=== PATIENT | male | born 1940 | race Caucasian/White ===

== ENCOUNTER 2018-10-22 09:08 | Inpatient (IN) ==
--- NOTE | 2018-10-22 09:31 | Diag Imaging Result Doc PS360 ---
CT HEAD W/O CONTRAST - 10/22/2018 INDICATION: stroke COMPARISON: None FINDINGS: There is mild to moderate periventricular white matter chronic microvascular disease. There are also some old periventricular lacunar is bilaterally. No intracranial mass or hemorrhage. The skull is intact. The sinuses, mastoids, and middle ears are clear. IMPRESSION: Chronic appearing changes. No acute process. This exam was performed using automated exposure control, adjustment of mA or kV according to patient size, and/or use of iterative reconstruction technique Electronically signed by Joshua Turner 10/22/2018 9:29 AM
--- NOTE | 2018-10-22 09:41 | EKG Report ---
Test Performed on : 10/22/2018 09:19:41 AM Test Reason : Stroke like symptoms Blood Pressure : / mmHG Vent. Rate : 063 BPM Atrial Rate : 063 BPM P-R Int : 148 ms QRS Dur : 092 ms QT Int : 378 ms P-R-T Axes : 074 052 055 degrees QTc Int : 386 ms Normal sinus rhythm. with sinus arrhythmia. Normal ECG No previous ECGs available Unconfirmed Result
--- NOTE | 2018-10-22 09:44 | PROVIDER DOCUMENTATION ---
HPI-Neurological Disorder - General Chief Complaint: Stroke-Like Symptoms Stated Complaint: weakness Time Seen by Provider: 10/22/18 09:26 Allergies/Adverse Reactions: Patient Allergies Allergy/AdvReac Type Severity Reaction Status Date / Time No Known Allergies Allergy Verified 10/22/18 09:32 - History of Present Illness-Neuro Nature of Presenting Problem: reports that he felt right sided weakness this morning around 2am but it continues. he reports that while he stood up started ambulating, but fell over and denies any symptoms of dizziness, lightheadedness or any symptoms. he reports no sustained injury and did not have LOC. at bedside he says his speech might be slurred and right side still weakness. no history of CVA, TIA. but has history of HLD, smoking still smokes 1ppd. history of colon cancer with colectomy and has the colostomy bag. Review of Systems - Adult - REVIEW OF SYSTEMS - ADULT Constitutional: reports: no symptoms reported Eyes: reports: no symptoms reported Ears, Nose, Mouth & Throat: reports: no symptoms reported Cardiovascular: reports: no symptoms reported Respiratory: reports: no symptoms reported Gastrointestinal: reports: no symptoms reported Genitourinary: reports: no symptoms reported Musculoskeletal: reports: no symptoms reported Integumentary: reports: no symptoms reported Neurological: reports: no symptoms reported Psychiatric: reports: no symptoms reported Endocrine: reports: no symptoms reported Hematologic/Lymphatic: reports: no symptoms reported Allergic/Immunologic: reports: no symptoms reported All Other Systems: Reviewed and Negative Past History - Adult - PAST MEDICAL HISTORY-ADULT Review of Records: reports: Old Records Reviewed, Nursing Assessment Review, Medications Reviewed, Social history reviewed & non-contributory. Major Childhood Illnesses: reports: denies history Cardiovascular: reports: denies history Respiratory: reports: denies history Gastrointestinal: reports: denies history Obstetrical/Gynecological: reports: denies history Genitourinary: reports: denies history Musculoskeletal: reports: denies history Neurological: reports: denies history Endocrine/Immune: reports: denies history Other Conditions: reports: denies history - IMMUNIZATION STATUS Childhood Immunizations: See Nurse Assessment Flu Vaccine: See Nurse Assessment - FAMILY HISTORY Family History: reviewed, not pertinent - SOCIAL HISTORY Smoking: greater than 1 pack/day Substance Use: none/never Alcohol Use Frequency: never Living Situation: alone Physical Exam- Neurological - Physical Exam-Neuro Initial Vital Signs Reviewed: Yes General Appearance: appears well, alert, no apparent distress Eye Exam: bilateral eye: normal inspection, PERRL, EOMI HENMT: normocephalic/atraumatic, moist mucous membranes, normal ENT inspection, TMs normal Head Injury: no evidence of injury, active bleeding Neck: non-tender, full range of motion Respiratory: chest non-tender, lungs clear, normal breath sounds Cardiovascular: normal peripheral pulses, regular rate, rhythm Abdominal Exam: normal bowel sounds, non tender Lymphatic: no adenopathy Peripheral Pulses: radial (R): 2+, radial (L): 2+ Extremity: normal range of motion, non-tender, other (weak gait slow walking) profile grinder Exam: normal hearing, normal speech, PERRL Coordination/Gait: normal finger to nose, negative Romberg's sign Motor/Sensory: no motor deficit, no sensory deficit, no pronator drift, negative Babinski's sign Neurologic: profile grinder II-XII nml as tested, grossly normal Integumentary: normal color, normal turgor, warm/dry Psych/Mental Status: normal mood/affect, normal thought content, normal thought process, oriented x 3 - Glascow Coma Scale Best Eye Response: (4) open spontaneously Best Verbal Response: (5) oriented Best Motor Response: (6) obeys commands Progress - PLAN OF CARE/RESULTS Progress/Plan/Lab Results: Vital Signs - 8 hr 10/22/18 09:22 10/22/18 09:28 10/22/18 10:00 Pulse Rate 70 67 95 H Respiratory Rate 16 16 19 Blood Pressure 99/65 99/65 O2 Sat by Pulse Oximetry 100 100 98 Laboratory Results - last 24 hr 10/22/18 10/22/18 10/22/18 09:26 09:26 09:26 WBC 8.23 RBC 4.48 L Hgb 13.7 L Hct 42.5 MCV 94.9 MCH 30.6 MCHC 32.2 L RDW Std Deviation 13.0 Plt Count 215 MPV 9.8 Immature Gran % (Auto) 0.5 Neut % (Auto) 64.6 Lymph % (Auto) 20.2 L [place] % (Auto) 8.1 Eos % (Auto) 5.7 Baso % (Auto) 0.9 H Immature Gran # (Auto) 0.04 Neut # (Auto) 5.32 Lymph # (Auto) 1.66 [place] # (Auto) 0.67 H Eos # (Auto) 0.47 Baso # (Auto) 0.07 PT 13.3 INR 0.94 PTT (Actin FS) 32.4 Sodium 141 Potassium 5.5 H Chloride 107 Carbon Dioxide 23 L Anion Gap 11 BUN 41 H Creatinine 2.4 H Estimated GFR/1.73 m2 26 BUN/Creatinine Ratio 17 Glucose 107 H Calculated Osmolality 292 Calcium 8.9 Total Bilirubin 0.22 AST 20 ALT 15 Alkaline Phosphatase 58 Troponin T Total Protein 6.2 L Albumin 4.3 Globulin 1.9 Albumin/Globulin Ratio 2.3 10/22/18 09:26 WBC RBC Hgb Hct MCV MCH MCHC RDW Std Deviation Plt Count MPV Immature Gran % (Auto) Neut % (Auto) Lymph % (Auto) [place] % (Auto) Eos % (Auto) Baso % (Auto) Immature Gran # (Auto) Neut # (Auto) Lymph # (Auto) [place] # (Auto) Eos # (Auto) Baso # (Auto) PT INR PTT (Actin FS) Sodium Potassium Chloride Carbon Dioxide Anion Gap BUN Creatinine Estimated GFR/1.73 m2 BUN/Creatinine Ratio Glucose Calculated Osmolality Calcium Total Bilirubin AST ALT Alkaline Phosphatase Troponin T < 0.010 Total Protein Albumin Globulin Albumin/Globulin Ratio Orders Category Date Time Status Admit - [facility] Routine AdmDCTranf 10/22/18 11:25 Active Activity - Strict Bedrest Q1D Care 10/22/18 11:25 Active Apply Mechanical Device [QM] ORDERED Care 10/22/18 11:25 Active Aspiration Precautions DIRECTED Care 10/22/18 11:25 Active Cardiac Monitoring DIRECTED Care 10/22/18 09:34 Completed DVT/PE Risk Assess/Protocol [QM] ORDERED Care 10/22/18 11:25 Active Elevate Head of Bed DIRECTED Care 10/22/18 11:25 Active IV Insertion ORDERED Care 10/22/18 11:25 Active Intake and Output-Strict ORDERED Care 10/22/18 11:25 Active Misc. NRSG Communication Order DIRECTED Care 10/22/18 09:34 Inactive Neurological Check ORDERED Care 10/22/18 11:25 Active Saline Loc NOW Care 10/22/18 09:34 Inactive Vital Signs Order Q 4-HR ASSESS Care 10/22/18 11:25 Active Z-Document. for Tele Applied ORDERED Care 10/22/18 11:25 Active Physician/Provider Consults Routine Cons 10/22/18 11:25 Ordered Social Service Consult Routine Cons 10/22/18 11:25 Active NPO Diet 10/22/18 Lunch Active CHEST-PORTABLE [RAD] Stat Exams 10/22/18 09:[address] HEAD W/O CONTRAST [CT] Stat Exams 10/22/18 09:14 Completed MRA BRAIN W/O CONTRAST [MRI] Routine Exams 10/23/18 07:00 Ordered MRI BRAIN W/O CONTRAST [MRI] Routine Exams 10/23/18 07:00 Ordered US RENAL 2 (RETROPER) COMPLETE [US] Routine Exams 10/22/18 11:25 Completed CBC WITH DIFF [HEME] Routine Lab 10/23/18 06:00 Ordered CBC WITH ELECTRONIC DIFF [HEME] Stat Lab 10/22/18 09:26 Completed COMPREHENSIVE METABOLIC PANEL [CHEM] Routine Lab 10/23/18 06:00 Ordered COMPREHENSIVE METABOLIC PANEL [CHEM] Stat Lab 10/22/18 09:26 Completed LIPID PROFILE W/DIR LDL [LIPIDS] Routine Lab 10/23/18 06:00 Ordered PROTIME WITH INR [COAG] Stat Lab 10/22/18 09:26 Completed PTT [COAG] Stat Lab 10/22/18 09:26 Completed TROPONIN T Stat Lab 10/22/18 09:26 Completed URINALYSIS W/POSS RFLX CULT [URINALYSIS] Stat Lab 10/22/18 10:40 Completed 0.9% Sodium Chloride Inj [Ns] 1,000 ml Med 10/22/18 11:25 Active IV 125 mls/hr 0.9% Sodium Chloride Inj [Ns] 1,000 ml Med 10/22/18 10:07 Discontinued IV 999 mls/hr ATORVAstatin [Lipitor] Med 10/22/18 21:00 Active 40 mg PO QHS Acetaminophen [Tylenol] Med 10/22/18 11:25 Active 650 mg PO Q6H PRN PRN Aspirin Med 10/23/18 09:00 Active 325 mg PO DAILY Nicotine Patch [Nicoderm Patch] Med 10/22/18 10:13 Discontinued 14 mg TD NOW ONE Ondansetron [Zofran] Med 10/22/18 11:25 Active 4 mg IV Q4H PRN PRN Telemetry [OM.EQ] Routine Oth 10/22/18 11:25 Active Carotid Ultrasound Routine Ther 10/22/18 11:25 Completed EKG [EKG] Stat Ther 10/22/18 09:34 Draft Echo Spec/Color Dop W/O Contra Routine Ther 10/22/18 11:25 Ordered Physical Therapy Eval/Treatment [OM.PT] Routine Ther 10/22/18 11:25 Active Speech Evaluation [OM.SPT] Routine Ther 10/22/18 11:25 Active Transfer/Admit Order [TRANSFER] Routine Transfer 10/22/18 10:[address] [facility] [address] [facility], [address], [place] [address] Department of Imaging Patient: MARIA DEL ROSARIO MART ADM Date: 10/22/18 MR#: [id number] : 1940 ADM Status: PRE ER Age/Sex: 77/M Room/Bed: Loc: ED Ordering Physician: Donta Tan MD Family Physician: None,PCP Reason for Procedure: stroke ___ Signed CT HEAD W/O CONTRAST - 10/22/2018 INDICATION: stroke COMPARISON: None FINDINGS: There is mild to moderate periventricular white matter chronic microvascular disease. There are also some old periventricular lacunar is bilaterally. No intracranial mass or hemorrhage. The skull is intact. The sinuses, mastoids, and middle ears are clear. IMPRESSION: Chronic appearing changes. No acute process. This exam was performed using automated exposure control, adjustment of mA or kV according to patient size, and/or use of iterative reconstruction technique Electronically signed by Joshua Turner 10/22/2018 9:29 AM 10/22/18 0929 Interpreting Physician: Joshua Turner MD Dictated Date/Time: 10/22/18 0926 cc: Donta Tan MD; None,PCP [address], [address], [place] [id number] Department of Imaging Patient: MARIA DEL ROSARIO MART ADM Date: 10/22/18 MR#: [id number] : 1940 ADM Status: PRE ER Age/Sex: 77/M Room/Bed: Loc: ED Ordering Physician: Donta Tan MD Family Physician: None,PCP Reason for Procedure: stroke like symptoms ___ Signed EXAM: CHEST-PORTABLE HISTORY: stroke like symptoms TECHNIQUE: Portable chest COMPARISON: None. FINDINGS: The lungs are hyperexpanded the heart is not enlarged. The vessels are not distended. There are no infiltrates. No effusion identified. IMPRESSION: Negative exam. Electronically signed by Gil Villalpando 10/22/2018 9:54 AM 10/22/18953 Interpreting Physician: Gil Villalpando MD Dictated Date/Time: 10/22/18953 cc: Donta Tan MD; None,PCP Result Diagrams: 10/22/18 09:26 10/22/18 09:26 - EKG 1 Time of EKG reading by physician:: 10:08 EKG Read and Signed by:: Pam Lepe EKG Interpretation (*Must complete 3 of following elements*): Normal Rate: 63 Rhythm: NSR with sinus arrhymia Ringoes: normal NE Interval: normal ST Wave: normal Prior EKG Comparison: no prior EKG - CONSULTS/PCP/HOSPITALIST Notification #1 *Consult/PCP/Hospitalist*: Time Discussed: 10:26 Consult Disposition: Will see in ED, Admit Departure - Departure Date of Disposition Decision: 10/22/18 Time of Disposition Decision: 10:09 DIAGNOSIS: Right sided weakness, Hyperkalemia, Acute renal failure, Low blood pressure reading, Tobacco abuse disorder Disposition: ADMITTED INPATIENT 09 Certified Medical Emergency: Emergent Condition: Stable - Critical Care Note This patient required my direct & personal management of CC.: No Attestation - Physician/ YEMI Attestation Patient care was provided by Advanced Practice Provider:: No The physician spent face to face time with patient:: Yes Advanced Practice Provider documentation review:: Supervising physician onsite and consulted in the evaluation and care of this patient. The physician did have a face to face encounter with the patient. - NIH Stroke Scale NIH Type: Initial Evaluation Level of Consciousness: 0-Alert LOC Questions (ask month and age): 0-Answers Both Correctly Best Gaze (horizontal eye movement): 0-Normal Visual (use finger movement, counting or visual threat): 0-No Visual Loss Facial Palsy (show teeth or raise eyebrows & close eyes tght: 0-Symmetrical Movement Motor Function-left arm: 0-Normal Motor Function-right arm: 0-Normal Motor Function-left le-Normal Motor Function-right le-Normal Limb Ataxia(wwhals-azzr-jfvmly, or heel to coats): 0-No Ataxia Sensory(pin prick to face,arms,trunk,legs-compare side/side): 0-No Ataxia Best Language(name item/read sentence.Ex-Down to Earth): 0-No Aphasia Dysarthria(Pt read words or say words Ex.Mama,Tip-Top,Thanks: 0-Normal Articulation Extinction and Inattention: 0-Normal Modified Cristopher Score Criteria: 0-no symptoms
[2018-10-22 09:46] LABS: BASO# 0.07 X1000 (0.0-0.2); BASO% 0.9 % (0.0-0.8); EOS# 0.47 X1000 (0.0-0.7); EOS% 5.7 % (0.0-10.0); HEMATOCRIT 42.5 % (42.0-52.0); HEMOGLOBIN 13.7 g/dL (14.0-18.0); IMM GRAN# 0.04 X1000 (0.0-0.04); IMM GRAN% 0.5 % (0.0-0.5); LYMPH# 1.66 X1000 (1.2-3.4); LYMPH% 20.2 % (20.5-51.1); MCH 30.6 PG (27-31); MCHC 32.2 g/dL (33-37); MCV 94.9 FL (81-99); MONO# 0.67 X1000 (0.11-0.59); MONO% 8.1 % (1.7-9.3); MPV 9.8 FL (7.4-10.4); NEUT# 5.32 X1000 (1.4-6.5); NEUT% 64.6 % (42.2-75.2); PLT 215 X1000 (130-400); RBC 4.48 XMIL (4.7-6.1); WBC 8.23 X1000 (4.8-10.8)
--- NOTE | 2018-10-22 09:57 | Diag Imaging Result Doc PS360 ---
EXAM: CHEST-PORTABLE HISTORY: stroke like symptoms TECHNIQUE: Portable chest COMPARISON: None. FINDINGS: The lungs are hyperexpanded the heart is not enlarged. The vessels are not distended. There are no infiltrates. No effusion identified. IMPRESSION: Negative exam. Electronically signed by Gli Villalpando 10/22/2018 9:54 AM
[2018-10-22 10:02] LABS: ALB/GLOB RATIO 2.3; ALBUMIN 4.3 g/dL (3.5-5.0); CALCIUM 8.9 mg/dL (8.8-10.2); CREATININE 2.4 mg/dL (0.7-1.2); POTASSIUM 5.5 mmol/L (3.5-5.1); TOTAL BILIRUBIN 0.22 mg/dL (0.20-1.00); TOTAL PROTEIN 6.2 g/dL (6.3-8.3)
[2018-10-22] MEDS ORDERED: NS 1,000 ML IV ONE (10:07)
[2018-10-22] MEDS ORDERED: NICODERM PATCH TD ONE (10:13)
[2018-10-22 10:44] LABS: INR 0.94; PROTIME 13.3 Seconds (11.0-16.0)
[2018-10-22 10:45] LABS: PTT 32.4 Seconds (22.3-41.8)
[2018-10-22 11:00] LABS: URINE SOURCE CLEAN CATCH
[2018-10-22] MEDS ORDERED: ASPIRIN PO ONE (11:08)
[2018-10-22 11:12] LABS: BILIRUBIN URINE NEGATIVE (NEGATIVE); BLOOD URINE NEGATIVE (NEGATIVE); COLOR YELLOW; GLUCOSE URINE NEGATIVE (NEGATIVE); KETONE URINE NEGATIVE (NEGATIVE); LEUKOCYTES URINE NEGATIVE (NEGATIVE); NITRITE URINE NEGATIVE (NEGATIVE); PROTEIN URINE TRACE mg/dL (NEGATIVE); SP GRAVITY URINE 1.016; TURBIDITY URINE CLEAR (CLEAR); UROBILINOGEN URINE NORMAL (NORMAL)
[2018-10-22 11:14] LABS: UR EPITHELIAL CELLS <10 /HPF (<10); URINE BACTERIA NEGATIVE /HPF; URINE RBC <10 /HPF (<10); URINE WBC <10 /HPF (<10)
[2018-10-22] MEDS ORDERED: TYLENOL PO PRN (11:25)
[2018-10-22] MEDS ORDERED: ZOFRAN IV PRN (11:25)
--- NOTE | 2018-10-22 11:48 | HISTORY AND PHYSICAL ---
PRIMARY CARE PROVIDER: Dr. Zion Florez. CHIEF COMPLAINT: Right-sided weakness. HISTORY OF PRESENT ILLNESS: Mr. Gates is a 77-year-old gentleman who carries a past medical history of colon cancer with a total colectomy and right lower quadrant colostomy, 1 pack per day smoker and has done so since the age of 16, and hyperlipidemia. Reports some dizzy spells 6 months ago and 3 years prior. Again, he woke up at 2 a.m. this morning with right-sided weakness. Got up to his recliner, still did not feel completely like his self. He got up from the recliner and fell down. He did not hit his head. No loss of consciousness. He was able to get back up to the chair. He continued with right-sided weakness. He was brought to the ED by his daughter, who lives next door. Workup in the ED, a head CT showed chronic appearing changes but no acute process. There was some old periventricular lacunar bilaterally, but nothing acute. Chest x-ray showed that the lungs are hyperexpanded but no pulmonary distention, infiltrates , or effusions. EKG shows normal sinus rhythm at 63 beats per minute. He will be admitted to medical telemetry for a complete neurological workup. PAST MEDICAL HISTORY: 1. Hyperlipidemia. 2. Tobacco use and abuse, 1 pack per day smoker and has done so since the age of 16. 3. Colon cancer, status post total colectomy with colostomy. PAST SURGICAL HISTORY: 1. Total colectomy with right lower quadrant colostomy. 2. Bilateral cataract surgery. 3. Vasectomy. SOCIAL HISTORY: He is from [place]. He lives next door to his daughter. His daughters at the bedside. He is a 1 pack per day smoker. No alcohol or illicit drug use. FAMILY HISTORY: No known coronary artery disease. He had one brother with throat or lung cancer who is , and two brothers and a father with diabetes. ALLERGIES: No known drug allergies. HOME MEDICATIONS: He came with a bag full of medicines. However, he states that he does not take those. He only takes the fish oil for his hyperlipidemia. REVIEW OF SYSTEMS: A 14 point review of systems was completely negative except for those mentioned in the HPI. PHYSICAL EXAMINATION: VITAL SIGNS: No temperature taken. Heart rate 67, respirations 16, blood pressure 99/65, O2 is 100% on room air. GENERAL: Mr. Gates is a 77-year-old, male who is sitting up on the stretcher and in no acute distress. HEENT: Atraumatic, normocephalic. PERRL. NECK: Neck is supple. Trachea midline. No JVD. CV: S1, S2 appreciated. No murmurs, gallops, or rubs noted. RESPIRATORY: Lung sounds clear. Equal chest excursion. Nonlabored breathing. No rales, rhonchi, or wheezes. GI: Colostomy noted to his right lower quadrant. Positive bowel sounds in 4 quadrants. EXTREMITIES: Negative for edema. Bilateral pedal pulses are palpable. NEUROLOGIC: The patient is alert and oriented x4. Follows commands. Moves all extremities. Smile is symmetrical. Tongue is midline. Did not appreciate any slurred speech. No pronator drift. Slight weakness on the right side compared to the left side. The right is about 4/5, left is 5/5. He was up and walking to the bathroom with assistance from his daughter. I did not get to assess his gait at that time. He denies any numbness or tingling to any extremities. DIAGNOSTIC DATA: Head CT, chronic appearing changes. No acute process. There was some old periventricular lacunar that is bilaterally. Chest x-ray, lungs are hyperexpanded. No acute process. EKG, normal sinus rhythm at 63 beats per minute. LABORATORY DATA: White count 8, hemoglobin and hematocrit 13 and 42, platelet count is 215,000. Sodium 141, potassium 5.5, BUN 41, creatinine 2.4, blood glucose is 107. Troponin less than 0.010. Urinalysis is pending. ASSESSMENT AND PLAN: 1. Cerebrovascular accident versus transient ischemic attack with continued complaint of right- sided weakness. We will give him full-dose aspirin now. Check a brain MRI and MRA, carotid Dopplers, echocardiogram. Do a bedside swallow. Check a lipid profile. Physical therapy and speech evaluation. Will allow for permissive hypertension. Neurology checks per protocol. Consult neurology. 2. Acute kidney injury on possible chronic kidney disease. We will continue with intravenous hydration. Check a renal ultrasound. Recheck his kidney function in the morning. We will consult nephrology when appropriate and hold any nephrotoxic medications. 3. Hyperlipidemia. Patient states he only takes fish oil. He did not tolerate statins. They cause muscle weakness. 4. Tobacco use and abuse. Patient smokes 1 pack per day and has done so since the age of 16. I did speak with him about smoking cessation. He has no desire to quit and he was supplied with a nicotine patch. 5. Colon cancer, status post total colectomy with a colostomy bag to the right lower quadrant. 6. Mild hyperkalemia. We will continue with fluid bolus and intravenous fluids. We will recheck in the morning. Electrocardiogram is normal sinus rhythm. There are no T- wave changes. 7. Further recommendations to follow physician evaluation, laboratory and diagnostic data. Dictated by WANDA Oates for Esdras Pinedo MD cc: MD Nancy Salazar III, III, MD Agree with the above H and P. The following is my own face to face assessment. 77 yo WM with sudden onset of R sided weakness this morning. improving but not entirely resolved at the time of my exam. subtle right sided weakness and R facial droop noted on exam. heart: RRR. lungs: CTAB. neuro workup in progress. 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 MTDD
--- NOTE | 2018-10-22 12:12 | Diag Imaging Result Doc PS360 ---
US RENAL 2 (RETROPER) COMPLETE - 10/22/2018 INDICATION: RAUL CKD TECHNIQUE: COMPARISON: None FINDINGS: The kidneys aren't grossly normal. There is a left renal cyst measuring 2.8 cm. No hydronephrosis. The right kidney measures 9.9 x 4.9 x 4.1 cm. The left kidney measures 10.4 x 5.2 x 6 cm. The prostate gland is enlarged and heterogeneous. The prostate measures 7.9 x 7.8 cm. The urinary bladder is grossly normal. IMPRESSION: 1. Severely enlarged prostate gland with internal heterogeneity. CT abdomen pelvis recommended. 2. Small left renal cyst. Otherwise unremarkable exam of the kidneys. Electronically signed by Joshua Turner 10/22/2018 12:10 PM
--- NOTE | 2018-10-22 15:49 | CONSULTATION ---
DATE OF CONSULTATION: 10/22/2018 REASON FOR CONSULT: Stroke. HISTORY OF PRESENT ILLNESS: This is a 77-year-old left-handed male with history of colon cancer, status post total colectomy and colostomy ten years ago, hyperlipidemia, who presents with acute onset right-sided weakness. History is from the patient. He says he felt well yesterday but he woke up at 2:00 a.m. this morning and felt as though he was fine at that time. He got up to the bathroom, then he fixed a glass of milk in the kitchen, and carried it with him to sit in the recliner. Very shortly after he sat down in the recliner he noticed a strange, numb sensation involving his right arm and leg. He does not recall involvement of the face. He was unable to use his right hand and felt that it was weak. He noticed he could not hold his cup when he tried to pick it up. He stood and fell. He was able to get himself back into his chair and phoned his daughter, who lives next door. He denies language disturbance, but does endorse slurred speech, as did his daughter, by his report. Daughter came over and sat with him for some time until he decided to go back to bed around 3:00 a.m. He was able to ambulate to the bed at that time. He woke up again at 7:00 a.m. The symptoms were still there and had not changed in intensity. He was able to ambulate to the bathroom and get dressed. On arrival, head CT did not show acute findings. His blood pressure was 99/65 and has remained relatively low during his stay. He does report that his blood pressure is typically on the low side. The patient denied any chest pain, shortness of breath, headache, or palpitations. He denies any other symptoms. No lightheadedness or syncope. PAST MEDICAL HISTORY: Includes, colon cancer discovered ten years ago, status post total colectomy with colostomy bag. He follows with his primary care doctor only and reports that he has not had any type of screening for this subsequently. Also, history of hyperlipidemia. SOCIAL HISTORY: He is a long time smoker of many years and continues to smoke with no desire to stop at this time. He says he drank "more than he should have" many years ago but has not had alcohol in many years. He says that in his older age he has picked up smoking marijuana occasionally and very little to help him sleep at night when he does so. He lives alone. His daughter lives next door. He does drive. 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 FAMILY HISTORY: No strokes or seizures. ALLERGIES: No known drug allergies. He does indicate that he does not tolerate statins and has tried a few some time ago but it caused muscle weakness. MEDICATIONS: He does not take daily medications at home. He reports some unknown medication that was given to him that he will take on occasion. He believes he is supposed to take this daily. REVIEW OF SYSTEMS: Balance of 12 was conducted and is otherwise negative except that detailed in the HPI. PHYSICAL EXAMINATION: Vital signs: Blood pressure 97 to 108 systolic over 60s to 70s diastolic. Pulse 60s to 70s. Respirations 12. 97% on room air. Mr. Gates is supine in bed, in no acute distress. He is pleasant and cooperative. He is completely oriented. He is attentive and spontaneous. Language function intact. There is some dysarthria. He follows simple and complex commands consistently. Left, right, and digit distinction are preserved. Pupils are equal, round, and reactive to bright light. Gaze conjugate. Extraocular movements are full. Visual leahy intact to direct confrontational testing. There may be very slight flattening of the nasal labial fold on the right, but I am not certain of that. Facial sensation reported intact. He can hear. Tongue is midline. Palpate elevates symmetrically. Shoulder shrug is full. No drift. Tone is symmetric and normal in the limbs. On strength testing, I can just overcome the right deltoid but otherwise he is quite strong and 5/5 in the upper and lower extremities as tested. He reports symmetric sensation to light touch and pinprick over the extremities. There is no extinction. [id number] is intact. Rapid alternating movements appear to be symmetric, possibly slightly slower on the right than the left at times. Reflexes are 1+ over the wrists, 1 to 2+ at the knees bilaterally. Absent ankle jerks. No clonus. Plantar response is with excessive withdrawal bilaterally. I did not test his gait. DIAGNOSTICS: Head CT, noncontrast, showing chronic microvascular ischemic changes and old periventricular lacunars bilaterally; no acute findings. This was personally reviewed as well. Normal white count and platelets. Normal coags. BUN 41 and creatinine 2.4. Blood sugar 107. ASSESSMENT AND PLAN: A 77-year-old left-handed male with history of hyperlipidemia, remote colon cancer, and current ongoing smoker presenting with acute onset right hemiparesis and hemisensory loss. 1. Acute ischemic stroke versus transient ischemic attack. Focal exam findings are minimal at best at this time. Perhaps they have improved since onset. Clinical history with sudden onset of symptoms is consistent with stroke or transient ischemic attack. I agree with MRI of the brain, carotid Doppler, cholesterol panel, A1c, and transthoracic echocardiogram. I would avoid hypotension and provide intravenous hydration as tolerated. He will need low-dose aspirin therapy daily with food for secondary stroke prevention. He does not tolerate statins but he may benefit from one if there is one he could potentially tolerate. I counseled him on the importance of smoking cessation. Physical Therapy, Occupational Therapy , and continue neuro checks. Speech Therapy to clear him for PO intake. 2. Remote history of colon cancer, status post total colectomy and colostomy. I do not have further details of this, but he reports he does not have routine followup in this regard. 3. Acute kidney injury with question of chronic kidney disease. Workup per primary team. Thank you for the consultation. cc: Ana Young MD [facility] CENTERLuis
--- NOTE | 2018-10-22 19:37 | ECHO REPORT ---
ORDER DATE: 10/22/2018 INDICATION: A 77-year-old male with stroke, right-sided weakness, aortic stenosis. M-MODE MEASUREMENTS: Left ventricle end diastole: 4.3. Left ventricle end systole: 2.6. Posterior wall: 1.3. Interventricular septum: 1.3. Left atrium: 3.4. Aortic root: 3.1. SUMMARY OF 2-DIMENSIONAL IMAGIN. Left ventricular function appears to be normal. Ejection fraction estimated at 61%. No wall motion abnormality noted. There is a mild degree of concentric LVH. 2. The aortic valve is markedly calcified and shows restricted opening. Maximum instantaneous gradient across the outflow tract of the left ventricle is 69 mmHg. Mean gradient is 39 mmHg. The aortic valve VTI is 99 cm. 3. The LVOT VTI is 17 cm. 4. The calculated aortic valve area is 0.7 cm2. The aortic valve area index is 0.35 cm2 per m2 of body surface area, indicating significant aortic stenosis. Color flow mapping of the aortic valve shows a moderate degree of regurgitation. 5. The mitral valve shows a mild degree of regurgitation. 6. Pulsed wave Doppler of mitral inflow shows reversal of the E/A ratio. The ratio is 0.7. 7. Tissue Doppler of septal and lateral mitral annulus averages 7 cm. 8. Pulmonary venous flow is normal. 9. There is no diastolic dysfunction. 10.The tricuspid valve shows a moderate degree of regurgitation. 11. Pulmonary pressure is estimated at 62 mmHg. 12.The pulmonic valve is normal. Color flow mapping unremarkable. 13.The atria appear to be within normal range. SUMMARY: This study shows: 1. Normal left ventricular systolic function, ejection fraction of 61% with mild degree of concentric LVH. 2. Severe aortic stenosis. Aortic valve area estimated at 0.7 cm2, mean gradient 39 mmHg. 3. Moderate pulmonary hypertension estimated at 62 mmHg. 4. Normal diastolic function. Clinical correlation recommended. cc: MD PEDRO Gallagher
[2018-10-22] MEDS: NS 1,000 ML IV SCH (20:00)
[2018-10-22] MEDS: LIPITOR PO SCH (23:05)
[2018-10-23] MEDS: NS 1,000 ML IV SCH ×2 (04:30→15:46)
[2018-10-23 05:42] LABS: BASO# 0.06 X1000 (0.0-0.2); BASO% 0.9 % (0.0-0.8); EOS% 5.9 % (0.0-10.0); HEMATOCRIT 38.5 % (42.0-52.0); HEMOGLOBIN 12.5 g/dL (14.0-18.0); IMM GRAN# 0.02 X1000 (0.0-0.04); IMM GRAN% 0.3 % (0.0-0.5); LYMPH# 1.69 X1000 (1.2-3.4); LYMPH% 24.8 % (20.5-51.1); MCH 31.2 PG (27-31); MCHC 32.5 g/dL (33-37); MONO# 0.48 X1000 (0.11-0.59); MPV 10.1 FL (7.4-10.4); NEUT# 4.16 X1000 (1.4-6.5); NEUT% 61.1 % (42.2-75.2); PLT 193 X1000 (130-400); RBC 4.01 XMIL (4.7-6.1); RDW 12.9 % (11.5-14.5); WBC 6.81 X1000 (4.8-10.8)
[2018-10-23 06:01] LABS: ALB/GLOB RATIO 1.9; CALCIUM 8.2 mg/dL (8.8-10.2); CREATININE 1.7 mg/dL (0.7-1.2); POTASSIUM 5.2 mmol/L (3.5-5.1); TOTAL BILIRUBIN 0.31 mg/dL (0.20-1.00); TOTAL PROTEIN 6.1 g/dL (6.3-8.3)
[2018-10-23] MEDS: ASPIRIN PO SCH (09:17)
--- NOTE | 2018-10-23 09:28 | Diag Imaging Result Doc PS360 ---
EXAM: MRI BRAIN W/O CONTRAST INDICATION: cva r/o COMPARISON: No prior MRI brain is available for comparison. FINDINGS: There is a focal acute lacunar infarct involving the right cerebellar hemisphere. There is also a tiny focus of cortical restricted diffusion involving the operculum on the left suggesting a tiny cortical acute infarct. No other restricted diffusion is appreciated. There are a few chronic lacunar infarcts in the periventricular white matter. There is suggestion of mild white matter microangiopathy. There is no discrete intracranial mass, mass effect, or intracranial hemorrhage. The surrounding soft tissues and bony structures are essentially unremarkable. IMPRESSION: 1.Acute lacunar infarct involving the right cerebellar hemisphere and small cortical acute infarct involving the operculum on the left. 2.Other incidental/nonacute findings detailed above. Electronically signed by Wallace Cedeño 10/23/2018 9:25 AM
--- NOTE | 2018-10-23 09:34 | Diag Imaging Result Doc PS360 ---
EXAM: MRA BRAIN W/O CONTRAST INDICATION: stroke TECHNIQUE: 3-D [id number] axial images and 3-D MIPS were obtained. COMPARISON: None. FINDINGS: There is no evidence of flow-limiting stenosis, vascular malformation, or cerebral aneurysm involving the arteries comprising the [place] including the anterior, middle, and posterior cerebral arteries. The distal ICAs are patent. The basilar artery is patent. IMPRESSION: No evidence of flow-limiting stenosis. Electronically signed by Wallace Cedeño 10/23/2018 9:32 AM
--- NOTE | 2018-10-23 14:00 | PROGRESS NOTE ---
DATE: 10/23/2018 SUBJECTIVE: Dr. Young saw Mr. Gates for neurology evaluation yesterday. He reports his right- sided weakness is almost completely resolved now. He does not have any new complaints. He specifically denies headache. Recent workup includes MRI scan showing evidence of small acute infarction in the left hemisphere which likely accounts for his presentation with right motor deficit. There is additional evidence of right cerebellar infarction which may also be acute. There is evidence of old ischemic change in the white matter bilaterally. Echocardiogram showed no source of embolus. Systolic blood pressure was recorded in the 70s over night, but 110s-140s today. OBJECTIVE: On exam, I can overcome the right deltoid grading 4+/5. Tone is symmetric in the limbs. He did well on [id number] testing bilaterally. He reports symmetric sensation on gross testing over the limbs. Visual leahy are full. Speech is not dysarthric. I observed him chewing and swallowing without difficulty. Tongue is midline. Head and neck are unremarkable. IMPRESSION: 1. Acute subcortical left hemisphere infarction with relatively pure motor deficit, stable and improved clinical course. I do not think we to do anything further from neurologic standpoint. 2. Imaging evidence of additional right cerebellar infarct which may also be acute. This raises question of cardiac source of embolus. Transthoracic echocardiogram did not show evidence of that. Transesophageal echocardiogram could be considered but I do not think is absolutely required in light of his age, stable course, and imaging appearance consistent with small vessel explanation for these recent findings. Would try to maintain adequate blood pressure, no other suggestions. Thanks for asking Neurology to see Mr. Gates. cc: MD PEDRO Alexander III
--- NOTE | 2018-10-23 20:04 | PROGRESS NOTE ---
DATE: 10/23/2018 OVERNIGHT EVENTS: He got his MRI/MRA. MRI had suggested presence of right- sided cerebellar and left-sided subcortical acute CVA The patient was already on aspirin and statin , started overnight. He also had improving kidney function. SUBJECTIVE: He denies any complaints. He feels he is feeling much better today. He was able to walk in the hallway without much help. I discussed with him about findings of aortic stenosis, large prostate, poor kidney function and need for outpatient blood test and outpatient Cardiology followup. I answered all of his questions. OBJECTIVE: Vital Signs: He was hypotensive yesterday. Currently, temperature of 98, pulse of 69 per minute, blood pressure 126/42. He is saturating 100% on room air. PHYSICAL EXAMINATION: General: Does not appear in any acute distress. He has oral cavity moist. Lungs: Air entry bilaterally equal. No wheeze, no rhonci, or crackles. Cardiovascular: S1, S2 normal. No murmur or gallop. Abdomen: Soft, nontender. No lower extremity edema. Neurologic: He has left-sided flattening of nasolabial fold. No obvious ptosis. No slurring of speech. Extraocular movements tracks bilaterally equally. Strength 5/5 bilateral upper and lower extremities. Sensation is intact. Reflexes appears to be adequate. LABS: Today suggestive of no leukocytosis, improving hyperkalemia, improving kidney function. MICROBIOLOGY: No data. REPORT IMAGIN. Brain MRI had suggested acute lacunar infarct involving the right cerebellar hemisphere and small cortical acute infarct involving left cerebellar hemisphere. 2. Brain MRA had suggested no evidence of flow-limiting stenosis. 3. Renal ultrasound had suggested severely enlarged prostate gland with internal heterogeneity. 4. Echocardiogram suggests severe aortic stenosis. ASSESSMENT AND PLAN: 1. Acute CVA affecting right cerebellar hemisphere and left subcortical contributing to his right- sided weakness on presentation. His weakness has been improving. Continue aspirin and high- dose statin. The patient will be advised to follow up Outpatient Cardiology for monitoring of Holter monitoring. Ultrasound of carotids is pending. 2. Kidney dysfunction. The patient denies known history of chronic kidney disease, so this could be acute kidney injury. Follow up with daily BMP. Continue intravenous fluids. He should get repeat BMP outpatient as well. 3. Hyperlipidemia. Patient only takes fish oil, but I restarted him back on statins. He said previously he was having dizziness secondary to statin. 4. Tobacco use. Patient was counseled to quit tobacco and continue nicotine patch for now. 5. Severe aortic stenosis. Outpatient Cardiology followup. 6. Colon cancer status post total colectomy and colostomy bag in right lower quadrant, aware. 7. Mild hyperkalemia. Continue intravenous fluids. Follow up with BMP tomorrow. 8. Severe benign prostatic hypertrophy. He should get repeat imaging of his prostate as an outpatient. 9. Disposition: The patient remains inside the hospital while I await recovery of his kidney function. Depending on that, I will plan discharging him tomorrow with outpatient BMP, Outpatient Urology, Outpatient Nephrology and Cardiology followup. Plan of care was discussed with him. All of his questions have been answered. cc: Zach Ibarra MD MTDD
[2018-10-23] MEDS: LIPITOR PO SCH (23:50)
[2018-10-24 07:19] LABS: CALCIUM 7.7 mg/dL (8.8-10.2); CREATININE 1.4 mg/dL (0.7-1.2); POTASSIUM 4.8 mmol/L (3.5-5.1)
[2018-10-24] MEDS: ASPIRIN PO SCH (10:32)
[2018-10-24 11:31] VITALS: BP 139/57
--- NOTE | 2018-10-25 01:45 | DISCHARGE SUMMARY ---
ADMISSION DATE: 10/22/2018 DISCHARGE DATE: 10/24/2018 DISCHARGE DIAGNOSES: 1. Acute cerebrovascular accident affecting right cerebellar hemisphere and left subcortical region contributing to right-sided weakness on presentation. 2. Acute renal failure. 3. Severe aortic stenosis. 4. Hyperkalemia. 5. Severe benign prostatic hypertrophy with symptoms of nocturia and incomplete voiding. OTHER DIAGNOSES: 1. Hyperlipidemia. 2. Tobacco use disorder. 3. Colon cancer status post total colectomy and colostomy in right lower quadrant. CONSULTATION DURING HOSPITALIZATION: Neurology, Dr. Jung. PROCEDURES DURING HOSPITALIZATION: None. IMAGING DURING HOSPITAL ADMISSION: 1. Head CT on 10/22/2018 had suggested chronic appearing changes without any acute process. Chest x-ray on admission suggested no acute pathology. Echocardiogram had suggested normal left ventricular systolic function with EF of 61%, with mild concentric left ventricular hypertrophy, severe aortic stenosis with a valve area 0.7 cm2, with a mean gradient of 39, moderate pulmonary hypertension of 62 mmHg and normal diastolic function. Renal ultrasound had suggested severely enlarged prostate gland with internal heterogeneity. 2. Brain MRA on admission had suggested no evidence of flow-limiting stenosis. Brain MRI on 10/23/2018 had suggested acute lacunar infarct involving right cerebellar hemisphere and small cortical acute infarct involving operculum on the left. Other incidental findings were chronic microvascular ischemic changes. DISCHARGE MEDICATIONS: Atorvastatin 40 mg at nighttime, aspirin 325 mg daily. HOSPITAL COURSE SUMMARY: Mr. Gates is a 77-year-old man, , with longstanding tobacco use disorder who came in with complaints of right-sided weakness and mechanical fall without any head injury or loss of consciousness, who was brought to the emergency room by his daughter. Workup in the ED including a head CT was unremarkable. The patient was not given any tPA. EKG was normal sinus rhythm. He was admitted to Medical Telemetry Unit. Brain imaging had suggested with MRI the next day that he had an acute stroke, he was managed conservatively. Twenty-four hours post presentation he started improving and his weakness had improved. Physical therapy had been consulted and the patient was able to move in the hallway with minimal assistance at the time of discharge and did not need any rehab. He was to be discharged on aspirin and statin. He was advised to follow up with a digital forensic analyst for Holter monitoring. 1. Acute CVA affecting the right cerebellar hemisphere and left cortical operculum with right- sided weakness on presentation. At the time of discharge his weakness had already been improving. He had only mild right upper extremity weakness with power about 4/5. 2. Kidney dysfunction. On admission the patient was noted to have acute kidney injury. He was started on intravenous fluid and his kidney function has significantly improved at the time of discharge; however, his GFR remained close to 50. He was given outpatient BMP script and was advised to follow up with his regular doctor. Benign prostatic hypertrophy could have contributed to his acute kidney injury. 3. Hyperlipidemia. He was started on high-dose statin. 4. He was counseled about stopping tobacco use. 5. Echocardiogram has suggested severe aortic stenosis. He was advised to follow up with Cardiology as an outpatient for Holter monitoring to rule out atrial fibrillation and further workup of aortic stenosis as needed. 6. He also was found to have hyperkalemia which was improved at the time of discharge, it was thought to be related to acute kidney injury. 7. For his severe benign prostatic hypertrophy, he did not have any urine retention. He was advised to follow up with Urology as an outpatient. VITAL SIGNS: Vitals at the time of discharge, temperature of 98.4 degrees, pulse 54, blood pressure 130/51, saturating 99% on room air. DISCHARGE PHYSICAL EXAMINATION: General: The patient was alert and oriented x3. Lungs: No wheeze, rhonchi or crackles. Heart: Ssounds normal. No murmur, rub or gallop. Abdomen: Soft, nontender. Neurologic: Neurologic examination had detected no obvious ptosis or slurring of speech. Extraocular movements were intact. His strength was 4-5/5 on the right upper and right lower extremities, and 5/5 on the left upper and left lower extremities. Sensation were intact. Reflexes were equal, 2+ bilaterally. FOLLOW-UP: He was advised to follow up with his urologist, digital forensic analyst, regular doctor and neurologist. TIME SPENT: More than 30 minutes was spent in discharging this patient. I also called the patient's daughter who I assume is a surrogate decision maker to inform her about the discharge instructions and discharge plan; however, she did not diamond picker. I left a voice message if she had any questions she could let the nurse know. cc: MD PEDRO Tohmson
--- NOTE | 2018-10-28 13:04 | Carotid Study ---
DATE: 10/22/2018 PROCEDURE: Carotid duplex imaging. REFERRING PHYSICIAN: Khris. INTERPRETING PHYSICIAN: Dimitri Tong MD. TECH: [place]. INDICATIONS: Right-sided weakness and dizziness. OBSERVED DATA RIGHT LEFT Brachial Blood Pressure Carotid Pulse Bruits: Carotid/Sub DIAGRAM OF ULTRASOUND IMAGING R L RIGHT INT EXT INT EXT LEFT Gerry (cm/s) Gerry (cm/s) Subclavian 95/0 Subclavian 41/0 CCA Proximal 98/11 CCA Proximal 91/10 CCA Distal 86/13 CCA Distal 80/10 Bulb 87/14 Bulb 82/11 ICA Proximal 147/23 ICA Proximal 72/12 ICA Mid 115/23 ICA Mid 71/20 ICA Distal 97/23 ICA Distal 81/20 ECA 72/5 ECA 72/0 Vertebral 95/12 Vertebral 25/0 ICA/CCA Ratio 1.5 ICA/CCA Ratio 0.9 % Stenosis 40-59 % Stenosis 0-39 FINDINGS: There is irregular heterogeneous plaque disease in the right common carotid artery, carotid bulb, and internal carotid artery. There is also heterogeneous irregular plaque in the left carotid bulb and internal carotid artery. There is abnormal left subclavian arterial flow and retrograde flow of the left vertebral artery indicating some subclavian steal syndrome. INTERPRETATION: Bilateral plaque disease in the common and internal carotid arteries producing a moderate stenosis in the right internal carotid artery, only mild on the left, although there is abnormal vertebral and subclavian flow on the left side as described above. cc: Dimitri Tong MD
== END 2018-10-24 15:20 | disposition home or self-care (01) | DRG 65 ==
LOC: SUPCPDRO → ED 09:08 → EDIPHOLD 10:39 → SUATTDRO 10:39 → 4N 10-23 04:45
PROVIDERS: ATTEND Internal Medicine
CPT/HCPCS: 70450; 70544; 70551; 71010; 71045; 76770; 80048; 80053; 80061; 81001; 83721; 84484; 85025; 85610; 85730; 92610; 93005; 93306; 93880; 97161; 99285; A9270; J7030